=== PATIENT | male | born 1965 | race Caucasian/White ===

== ENCOUNTER → 2016-11-30 | Outpatient (CLI) | payer BC ==
--- NOTE | 2016-12-01 10:12 | XR ---
EXAMINATION TYPE: XR chest 2V DATE OF EXAM: 11/30/2016 4:29 PM COMPARISON: NONE TECHNIQUE: PA and lateral views submitted. HISTORY: Cough and congestion FINDINGS: The lungs are clear and there is no pneumothorax, pleural effusion, or focal pneumonia. IMPRESSION: 1. No acute process.
== END | disposition home or self-care (01) ==
LOC: RADXRYALE 16:15
PROVIDERS: ATTEND Family Medicine
DX: R05 Cough (principal)
CPT/HCPCS: 71020

== ENCOUNTER → 2018-02-11 | Day surgery (SDC) | payer BC ==
[2018-02-10 11:38] VITALS: BMI 35.9
[~2018-02-11] MED LIST: LACTATED RINGERS 1,000 ML IV SCH; LIDOCAINE 1% 20 ML VIAL (10MG/ML) FOR IV START INTRADERMA PRN; PROPOFOL 10 MG/ML 20 ML VIAL IV ONE
[2018-02-11 11:02] VITALS: TEMP 97
[2018-02-11 11:23] LABS: Basophils % (A) 1 %; Eosinophils # (A) 0.2 k/uL (0-0.7); Eosinophils % (A) 3 %; HCT 45.7 % (39.0-53.0); Lymphocytes % (A) 26 %; MCH 28.9 pg (25.0-35.0); MCHC 35.1 g/dL (31.0-37.0); MCV 82.5 fL (80.0-100.0); Mean Platelet Volume 7.7; Monocytes # (A) 0.5 k/uL (0-1.0); Monocytes % (A) 6 %; Neutrophils # (A) 5.2 k/uL (1.3-7.7); Neutrophils % (A) 64 %; Platelet Count 215 k/uL (150-450); RBC 5.53 m/uL (4.30-5.90); RDW 12.9 % (11.5-15.5)
[2018-02-11 11:38] LABS: ALT 44 U/L (21-72); AST 25 U/L (17-59); Albumin 4.1 g/dL (3.5-5.0); Alkaline Phosphatase 86 U/L (38-126); Anion Gap 12 mmol/L; Blood Urea Nitrogen 16 mg/dL (9-20); Calcium 9.3 mg/dL (8.4-10.2); Carbon Dioxide 24 mmol/L (22-30); Chloride 108 mmol/L (98-107); Glucose 104 mg/dL (74-99); Potassium 4.4 mmol/L (3.5-5.1); Sodium 144 mmol/L (137-145); Total Bilirubin 0.6 mg/dL (0.2-1.3)
--- NOTE | 2018-02-11 11:55 | P.PCN ---
Date of Procedure: 02/11/18 Procedure(s) Performed: BRIEF HISTORY: Patient is a 52-year-old, pleasant, white male, scheduled for an upper endoscopy as a part of evaluation of long-standing history of GERD of 20 years duration. He is been on Nexium 20 mg daily and lately has been having worsening heartburn and intermittent dysphagia to solids. PROCEDURE PERFORMED: Esophagogastroduodenoscopy with biopsy. PREOPERATIVE DIAGNOSIS: Long-standing history of GERD/intermittent dysphagia to solids. IV sedation per anesthesia. PROCEDURE: After informed consent was obtained, the patient was brought into the endoscopy unit. IV sedation was administered by Anesthesia under continuous monitoring. Initially the Olympus GIF-140 video endoscope was inserted into the mouth. Esophagus intubated without any difficulty. It was gradually advanced into the stomach and duodenum and carefully examined. The bulb and the second part of the duodenum appeared normal. The scope at this time was withdrawn to the stomach, adequately insufflated with air, and upon careful examination, mucosa of the antrum, had mild gastritis and biopsies were done from this area. body, cardia and the fundus appeared normal. The scope was then withdrawn into the esophagus. The GE junction was located at 39 cm from the incisors. There was a 5-6 mm polyp at the GE junction which was biopsied. Small hiatal hernia noted. The esophagus appeared normal. There were no erosions or ulcerations seen and the patient tolerated the procedure well. IMPRESSION: 1. mild antral gastritis. 2. Small hiatal hernia 3. 5-6 mm GE junction polyp status post biopsy. RECOMMENDATIONS: The findings of this examination were discussed with the patient as well as his family. He was advised to follow with the biopsy results. he was advised to continue with Nexium 40 mg daily and follow antireflux measures. He'll be seen in office in 6 weeks..
[2018-02-11 12:12] VITALS: BP 131/87; PULSE 61; RESP 16
[2018-02-11 12:13] LABS: C Reactive Protein <5.0 mg/L (<10.0)
[2018-02-11 19:25] LABS: Gliadin AB IgA, Unit 2.4 U/mL
== END | disposition home or self-care (01) ==
LOC: ORWHC2ENDO 10:34
PROVIDERS: ATTEND Internal Medicine Gastroenterology
DX: K29.50 Unspecified chronic gastritis without bleeding (principal); K21.9 Gastro-esophageal reflux disease without esophagitis; K44.9 Diaphragmatic hernia without obstruction or gangrene; K31.7 Polyp of stomach and duodenum; Z88.5 Allergy status to narcotic agent; Z79.899 Other long term (current) drug therapy; F17.210 Nicotine dependence, cigarettes, uncomplicated; I10 Essential (primary) hypertension; Z86.73 Personal history of transient ischemic attack (TIA), and cerebral infarction without residual deficits
CPT/HCPCS: 88305; 80053; 85025; 86140; 83516 ×4; 43239; J2704

== ENCOUNTER → 2018-11-10 | Outpatient (CLI) | payer BC ==
--- NOTE | 2018-11-11 10:13 | ECHOF ---
Referral Reason:I10 hypertension, R06.02 shortness of breath MEASUREMENTS -------- HEIGHT: 177.8 cm WEIGHT: 117.9 kg BP: 157/80 RVIDd: 3.3 cm (< 3.3) IVSd: 1.3 cm (0.6 - 1.1) LVIDd: 4.4 cm (3.9 - 5.3) LVPWd: 1.3 cm (0.6 - 1.1) IVSs: 1.6 cm LVIDs: 3.4 cm LVPWs: 1.7 cm LA Diam: 3.6 cm (2.7 - 3.8) LAESV Index (A-L): 25.45 ml/m Ao Diam: 3.4 cm (2.0 - 3.7) AV Cusp: 2.5 cm (1.5 - 2.6) MV EXCURSION: 17.007 mm (> 18.000) MV EF SLOPE: 85 mm/s (70 - 150) EPSS: 0.6 cm MV E Julito: 1.07 m/s MV DecT: 239 ms MV A Julito: 0.92 m/s MV E/A Ratio: 1.16 FINDINGS -------- Sinus rhythm. This was a technically adequate study. The left ventricular size is normal. There is mild concentric left ventricular hypertrophy. Overa ll left ventricular systolic function is normal with, an EF between 60 - 65 %. The right ventricle is mildly enlarged. Normal LA size by volume 22+/-6 ml/m2. The right atrium is normal in size. The aortic valve is trileaflet and appears structurally normal. The mitral valve is normal. The tricuspid valve appears structurally normal. Trace/mild (physiologic) pulmonic regurgitation. The aortic root size is normal. Normal inferior vena cava with normal inspiratory collapse consistent with estimated right atrial pre ssure of 5 mmHg. There is no pericardial effusion. CONCLUSIONS -------- 1. Sinus rhythm. 2. This was a technically adequate study. 3. The left ventricular size is normal. 4. There is mild concentric left ventricular hypertrophy. 5. Overall left ventricular systolic function is normal with, an EF between 60 - 65 %. 6. The right ventricle is mildly enlarged. 7. Normal LA size by volume 22+/-6 ml/m2. 8. The right atrium is normal in size. 9. The aortic valve is trileaflet and appears structurally normal. 10. The mitral valve is normal. 11. The tricuspid valve appears structurally normal. 12. Trace/mild (physiologic) pulmonic regurgitation. 13. The aortic root size is normal. 14. Normal inferior vena cava with normal inspiratory collapse consistent with estimated right atrial pressure of 5 mmHg. 15. There is no pericardial effusion. ARMATURE AND ROTOR WINDER: Janny Amanda RDCS
== END | disposition home or self-care (01) ==
LOC: RADECHMAIN 15:28
PROVIDERS: ATTEND Family Medicine
DX: I37.1 Nonrheumatic pulmonary valve insufficiency (principal); I11.9 Hypertensive heart disease without heart failure; R53.83 Other fatigue
CPT/HCPCS: 93306

== ENCOUNTER → 2018-12-15 | Outpatient (CLI) | payer BC ==
--- NOTE | 2018-12-15 16:34 | XR ---
EXAMINATION TYPE: XR chest 2V DATE OF EXAM: 12/15/2018 COMPARISON: Prior chest x-ray 11/30/2016 and 07/26/2017 HISTORY: COPD TECHNIQUE: Frontal and lateral views of the chest are obtained. FINDINGS: There is no focal air space opacity, pleural effusion, or pneumothorax seen. The cardiac silhouette size is within normal limits. The osseous structures are intact. IMPRESSION: No acute cardiopulmonary process.
== END ==
LOC: RADXRYALE 15:30
PROVIDERS: ATTEND Family Medicine
DX: J44.9 Chronic obstructive pulmonary disease, unspecified (principal)
CPT/HCPCS: 71046

== ENCOUNTER → 2019-10-11 | Outpatient (CLI) | payer BC ==
--- NOTE | 2019-10-11 11:27 | MM ---
Reason for exam: clinical finding. History: Patient history of other cancer. Family history of breast cancer in mother at age 61. Physical Findings: Nurse Summary: 1cm nodule in the left breast at 8 o'clock and 9 o'clock (nurse iron). [facility] Diagnostic Mammo w CAD RIOS Bilateral CC and MLO view(s) were taken. XCCL view(s) were taken of the left breast. The breast tissue is almost entirely fat. There is no discrete abnormality including area of concern marked by two BB's left breast. These results were verbally communicated with the patient and result sheet given to the patient on 10/11/19. ASSESSMENT: Negative, BI-RAD 1 RECOMMENDATION: Clinical management of both breasts. Manage patient on a clinical basis.
--- NOTE | 2019-10-11 11:28 | USB ---
Reason for exam: clinical finding. History: Patient history of other cancer. Family history of breast cancer in mother at age 61. US Breast Limited LT Left limited breast ultrasound including focal area of concern, retroareolar and axilla demonstrates a 1.9 x 1.1 x 0.6cm oval, hyperechoic lesion at 9 o'clock and a 1.4 x 1.3 x 0.6cm oval lesion at 8 o'clock. These results were verbally communicated with the patient and result sheet given to the patient on 10/11/19. ASSESSMENT: Benign, BI-RAD 2 RECOMMENDATION: Clinical correlation of the left breast. Manage on a clinical basis, if they change, reimage.
== END | disposition home or self-care (01) ==
LOC: RADMAMWWP 09:35
PROVIDERS: ATTEND Family Medicine
DX: N63.24 Unspecified lump in the left breast, lower inner quadrant (principal)
CPT/HCPCS: 77066

== ENCOUNTER → 2020-10-14 | Outpatient (CLI) | payer BC ==
[2020-10-14 16:35] LABS: Appearance,Urine Clear (Clear); Bilirubin,Urine Negative (Negative); Blood,Urine Negative (Negative); Color,Urine Colorless; Glucose,Urine (UA) Negative (Negative); Ketones,Urine Negative (Negative); Leukocyte Esterase,Urine Negative (Negative); Nitrite,Urine Negative (Negative); PH, Urine 5.5 (5.0-8.0); Protein,Urine Negative (Negative); Specific Gravity,Urine 1.004 (1.001-1.035); Urobilinogen,Urine <2.0 mg/dL (<2.0)
[2020-10-14 16:36] LABS: Basophils # (A) 0.1 k/uL (0-0.2); Basophils % (A) 1 %; Eosinophils # (A) 0.2 k/uL (0-0.7); Eosinophils % (A) 1 %; HCT 44.8 % (39.0-53.0); HGB 15.2 gm/dL (13.0-17.5); Lymphocytes # (A) 3.2 k/uL (1.0-4.8); Lymphocytes % (A) 25 %; MCH 29.5 pg (25.0-35.0); MCV 86.7 fL (80.0-100.0); Mean Platelet Volume 7.6; Monocytes # (A) 0.7 k/uL (0-1.0); Monocytes % (A) 6 %; Neutrophils # (A) 8.6 k/uL (1.3-7.7); Neutrophils % (A) 67 %; Platelet Count 218 k/uL (150-450); RBC 5.16 m/uL (4.30-5.90); RDW 12.8 % (11.5-15.5); WBC 12.9 k/uL (3.8-10.6)
[2020-10-14 16:47] LABS: African American GFR (CKD) >90 (>60 ml/min/1.73 sqM); Anion Gap 6 mmol/L; Blood Urea Nitrogen 17 mg/dL (9-20); Calcium 9.6 mg/dL (8.4-10.2); Carbon Dioxide 26 mmol/L (22-30); Chloride 103 mmol/L (98-107); Glucose 106 mg/dL (74-99); Non-African American GFR(CKD) 87 (>60 ml/min/1.73 sqM); Potassium 4.1 mmol/L (3.5-5.1); Sodium 135 mmol/L (137-145)
[2020-10-14 16:49] LABS: INR 0.9 (<1.2); Prothrombin Time 9.6 sec (9.0-12.0)
[2020-10-14 16:56] LABS: Partial Thromboplastin Time 21.5 sec (22.0-30.0)
--- NOTE | 2020-10-14 19:53 | XR ---
EXAMINATION TYPE: XR chest 2V DATE OF EXAM: 10/14/2020 COMPARISON: Chest x-ray 12/15/2018 HISTORY: Presurgical testing TECHNIQUE: Frontal and lateral views of the chest are obtained. FINDINGS: There is no focal air space opacity, pleural effusion, or pneumothorax seen. The cardiac silhouette size is within normal limits. The osseous structures are intact. IMPRESSION: No acute cardiopulmonary process.
== END | disposition home or self-care (01) ==
LOC: LABPAT 15:54
PROVIDERS: ATTEND Orthopaedic Surgery Orthopaedic Surgery of the Spine
DX: Z01.818 Encounter for other preprocedural examination (principal); G95.89 Other specified diseases of spinal cord
CPT/HCPCS: 36415; 71046; 80048; 81003; 85025; 85610; 85730; 86850; 86900; 86901

== ENCOUNTER 2020-10-21 06:20 | Day surgery (SDC) | payer BC ==
[2020-10-14 15:37] VITALS: BMI 35.9
[~2020-10-21 06:20] MED LIST changes: +LIDOCAINE 1% (10MG/ML) FOR IV START INTRADERMA PRN; -LIDOCAINE 1% 20 ML VIAL (10MG/ML) FOR IV START INTRADERMA PRN; +ONDANSETRON 4 MG/2 ML VIAL IVP ONE; -PROPOFOL 10 MG/ML 20 ML VIAL IV ONE; +ceFAZolin 1,000 MG in SODIUM CHLORIDE 0.9% IRRIGATIO 1,000 ML IRRIGATION PRN
[2020-10-21] MEDS ORDERED: fentaNYL (PF) 50 MCG/ML 2 ML AMP IV PRN (07:00)
[2020-10-21 07:20] LABS: Glucose,Whole Blood 123 mg/dL (75-99)
[2020-10-21] MEDS ORDERED: DEXAMETHASONE SOD PHOSPHATE 10 MG/ML 1 ML VIAL ONE (07:31)
[2020-10-21] MEDS ORDERED: HYDROmorphone (PF) 1 MG/ML ONE (07:31)
[2020-10-21] MEDS ORDERED: MIDAZOLAM 2 MG/2 ML VIAL ONE (07:31)
[2020-10-21] MEDS ORDERED: LIDOCAINE 1% INJ 10MG/ML (20 ML MDV) ONE (07:31)
[2020-10-21] MEDS ORDERED: GLYCOPYRROLATE 0.2 MG/ML 2 ML VIAL ONE (07:31)
[2020-10-21] MEDS ORDERED: SUCCINYLCHOLINE CHLORIDE 100 MG/5 ML SYR IV ONE (07:31)
[2020-10-21] MEDS ORDERED: PHENYLEPHRINE 10 MG/ML VIAL ONE (07:31)
[2020-10-21] MEDS ORDERED: fentaNYL (PF) 50 MCG/ML 2 ML AMP ONE (07:31)
[2020-10-21] MEDS ORDERED: ROCURONIUM 10 MG/ML (10 ML VIAL) IV ONE (07:31)
[2020-10-21] MEDS ORDERED: PROPOFOL 10 MG/ML 20 ML VIAL IV ONE (07:31)
[2020-10-21] MEDS ORDERED: NEOSTIGMINE 1 MG/ML 10 ML VIAL ONE (07:31)
[2020-10-21] MEDS ORDERED: LACTATED RINGERS 1,000 ML IV ONE ×2 (07:57→08:35)
[2020-10-21] MEDS ORDERED: LIDOCAINE 0.5%-EPI 1:200,000 50 ML VIAL SQ ONE ×2 (08:20)
--- NOTE | 2020-10-21 08:47 | XR ---
Cervical spine HISTORY: Needle placement Single lateral view of the cervical spine submitted. There is a needle present at C5-6 interspace. Endotracheal tube noted incidentally. Cervical spondylo sis present. IMPRESSION: Orthopedic localization
[2020-10-21] MEDS ORDERED: THROMBIN (BOVINE) 5,000 UNIT VIAL MISCELLANE ONE (09:43)
[2020-10-21] MEDS ORDERED: GELATIN SPONGE,ABSORB (LARGE) 1 EACH SPONGE TOPICAL ONE (09:43)
[2020-10-21] MEDS ORDERED: ONDANSETRON 4 MG/2 ML VIAL IVP PRN (10:18)
[2020-10-21] MEDS ORDERED: HYDROmorphone 1 MG/ML 1 ML SYRINGE IVP PRN (10:18)
[2020-10-21] MEDS ORDERED: BENZOCAINE/MENTHOL LOZENG 1 EACH LOZENGE MUCOUS MEM PRN (10:18)
[2020-10-21] MEDS ORDERED: HYDROcodone/APAP 5-325MG 1 EACH TAB PO PRN (10:18)
[2020-10-21] MEDS ORDERED: HYDROmorphone 0.5 MG/0.5 ML SYRINGE IVP PRN (10:18)
[2020-10-21] MEDS ORDERED: ACETAMINOPHEN TAB 325 MG TAB PO PRN (10:18)
--- NOTE | 2020-10-21 10:22 | XR ---
Limited cervical spine HISTORY: Status post anterior cervical discectomy and fusion Single lateral view of the cervical spine submitted. Patient is status post anterior cervical fusion and discectomy at C4-C7, lower levels are not well se en. There is anatomic alignment as visualized. Endotracheal tube is noted. IMPRESSION: Orthopedic follow-up.
--- NOTE | 2020-10-21 10:27 | P.OP ---
Date of Procedure: 10/21/20 Preoperative Diagnosis: Cervical myelopathy, cervical myelomalacia, severe cervical stenosis C4 5 C5 6 C6 7, herniated nucleus pulposis C4 5 C5 6 C6 7, upper extremity weakness, upper extremity radiculopathy, neck pain, degenerative disc disease Postoperative Diagnosis: Cervical myelopathy, cervical myelomalacia, severe cervical stenosis C4 5 C5 6 C6 7, herniated nucleus pulposis C4 5 C5 6 C6 7, upper extremity weakness, upper extremity radiculopathy, neck pain, degenerative disc disease Anesthesia: GETA Pathology: none sent Condition: stable Disposition: PACU Description of Procedure: BRIEF OPERATIVE NOTE Preoperative Diagnosis:Cervical myelopathy, cervical myelomalacia, severe cervical stenosis C4 5 C5 6 C6 7, herniated nucleus pulposis C4 5 C5 6 C6 7, upper extremity weakness, upper extremity radiculopathy, neck pain, degenerative disc disease Postoperative Diagnosis:Cervical myelopathy, cervical myelomalacia, severe cervical stenosis C4 5 C5 6 C6 7, herniated nucleus pulposis C4 5 C5 6 C6 7, upper extremity weakness, upper extremity radiculopathy, neck pain, degenerative disc disease Procedure: Anterior cervical decompression with discectomy and fusion C4 5 C5 6 C6 7 Placement of interbody graft C4 5 C5 6 C6 7 Application of anterior cervical plate C4 5 6 and 7 Removal of large anterior cervical osteophytes Surgeon: Dr. Dickerson Automatic Packer Operator: Antonio SCHMIDT who is present throughout the entire the case persistence during positioning, dissection, exposure, visualization, and all crucial elements of the case as well as closure. Anesthesia: General anesthesiaPer Dr. Ward Estimated blood loss:Approximately 75 mL Complications: None apparent Components implanted:K2M [place] anterior cervical plate system with screws and Vikos interbody allograft bone graft with 1 mL of DBX bone putty Disposition: To recovery room in good stable condition. OPERATIVE INDICATIONS The patient has had long-standing issues in their neck and upper extremities. he has been having worsening of his symptoms at his upper extremities and losing some of his strength and dexterity his hands and fingers. He is having pain at his upper extremities and was found have evidence of early myelopathy. He had further workup which showed cervical myelomalacia and cervical stenosis at C4 5 C5 6 C6 7 with disc herniation and changes within the spinal cord correlated well with his neck and upper extremity symptoms. The patient has been through conservative treatment. he continue to have worsening despite conservative treatment. We discussed various treatment options including surgery, and the patient wishes to proceed with surgery We discussed the risk, patient's alternatives and benefits of surgery including but not limited to, risk of bleeding risk of infection, risk of need for further surgery, risk of decreased, loss of motion, muscle function, malunion nonunion, hardware failure, nerve dam age, paralysis, heart attack, and . OPERATIVE SUMMARY After discussing all the risks, patient alternatives and benefits at length, the patient elected to proceed with surgical intervention, signed informed consent, and presented for their procedure. The patient was seen and examined in the preoperative holding area and the surgical site was marked. The patient was given antibiotics and brought to the operating room. The patient was positioned on the operating room table in a supine position being careful to pad any bony prominences and pressure points. The patient was sedated and intubated by anesthesia in standard fashion. Once the airway and C- spine were stabilized the patient's arms were padded and tucked at her side, with her shoulders gently taped. The head was placed in a donut pad with the neck in good neutral alignment and position. We were careful to maintain the patient's cervical spine and good neutral alignment and position throughout. The patient was prepped and draped in a normal standard fashion. An appropriate timeout and keystone protocol performed. We were able to proceed with the surgery. The local wound area was infiltrated with local anesthetic. An incision was made transversely approximately 2-1/2 cm over the appropriate levels At C6. Dissection was taken down subcutaneously to the level of the platysma which was split in line with its fibers. Dissection was taken with a carotid approach, with the trachea and esophagus medial and the carotid sheath laterally. We dissected down to the anterior surface of the vertebral bodies. Intraoperative x-ray was taken which showed a marker at the appropriate level Of C5 6. With the appropriate level positively confirmed, we were able to proceed with discectomy at the appropriate levels Starting at C4 5 than removing the C5 6 and then C6 7. All of the operative levels were exposed appropriately. he had very large anterior cervical osteophytes particularly at its 56 and C6 7 these had to be dissected out and removed as well. The patient had all their twitches back, and there was no evidence of recurrent laryngeal issue. The wound was copiously irrigated and suctioned dry as had been done periodically throughout the case. At the appropriate level/levels,starting at C4 5 than removing C5 6 and C6 7. I established an annulotomy with an 11 blade scalpel. A discectomy was performed with a combination of pituitary rongeurs, curettes, a high-speed bur, and Kerrison rongeurs. The posterior longitudinal ligament was taken down as were any posterior osteophytes. Note w as made of significant disc herniation particular at C4 5. There were large posterior osteophytes and thickening of the ligament was causing significant stenosis which was remedied with the decompression and discectomy and taking down posterior longitudinal ligament. This gave good central and bilateral foraminal decompression. There is no evidence of any dural tear or leak. The endplates were prepared with a high-speed bur. With the endplates in good parallel position, I was able to size for the appropriate size interbody graft. The wound was irrigated and suctioned dry the graft was prepared and malleted into position. It had good alignment and position with the anterior surface flush with the anterior surface of the vertebral bodies. This was done similarly the appropriate levels. With the grafts intact, I was able to measure and contour and appropriate sized plate. The plate was positioned at the midline over the appropriate levels From C4 to C7. Screw holes were established with a hand drill and drill guide. Screws were placed in good alignment and position with excellent bony purchase. They were seated under the locking device. The construct was checked and found to be stable. Intraoperative x-ray was taken which showed good alignment and position of the implants at the appropriate levels. There was no evidence of any dural tear or leak. Good hemostasis was maintained. The wound was copiously irrigated and suctioned dry as had been done periodically throughout the case. The platysma was closed with absorbable suture. The subcutaneous tissue was cl osed. The subcuticular tissue was closed with absorbable suture. The wound was cleaned and dried and dressed appropriately. A soft cervical collar was placed appropriately. The patient was woken up by anesthesia, extubated, transferred back gently to their hospital bed and brought to the recovery room in good stable condition. The patient will be admitted to the hospital for appropriate postoperative care, medical management and monitoring. We will continue to follow them closely about the postoperative course.
[2020-10-21] MEDS ORDERED: SODIUM CHLORIDE 0.9% 1,000 ML IV SCH (10:30)
[2020-10-21 10:46] VITALS: TEMP 97.4
[2020-10-21 10:51] VITALS: RESP 16
[2020-10-21 12:39] VITALS: BP 101/64; PULSE 68
[2020-10-21] MEDS ORDERED: PANTOPRAZOLE 40 MG TABLET PO SCH (17:30)
[2020-10-21] MEDS ORDERED: DICYCLOMINE 20 MG TAB PO SCH (21:00)
[2020-10-22] MEDS ORDERED: SYMBICORT 160-4.5 MCG INHALER INHALATION SCH (08:00)
[2020-10-22] MEDS ORDERED: MONTELUKAST 10 MG TAB PO SCH (09:00)
[2020-10-22] MEDS ORDERED: SENNOSIDES-DOCUSATE SODIUM 1 EACH TAB PO SCH ×2 (09:00)
[2020-10-22] MEDS ORDERED: CHOLECALCIFEROL 1,000 UNIT TAB PO SCH (09:00)
[2020-10-22] MEDS ORDERED: LORATADINE 10 MG TAB PO SCH (09:00)
[2020-10-22] MEDS ORDERED: LACTOBACILLUS ACIDOPH & BULGAR 1 EACH PACKET PO SCH (09:00)
[2020-10-22] MEDS ORDERED: LISINOPRIL-HCTZ 20-25 MG 1 EACH TAB PO SCH (09:00)
[2020-10-22] MEDS ORDERED: amLODIPine 10 MG TAB PO SCH (09:00)
== END 2020-10-21 13:20 | disposition home or self-care (01) ==
LOC: OR 06:20
PROVIDERS: ATTEND Orthopaedic Surgery Orthopaedic Surgery of the Spine
DX: M48.02 Spinal stenosis, cervical region (principal); G95.89 Other specified diseases of spinal cord; G95.9 Disease of spinal cord, unspecified; M50.10 Cervical disc disorder with radiculopathy, unspecified cervical region; M25.78 Osteophyte, vertebrae; I10 Essential (primary) hypertension; J44.9 Chronic obstructive pulmonary disease, unspecified; G47.33 Obstructive sleep apnea (adult) (pediatric); Z99.89 Dependence on other enabling machines and devices; F17.210 Nicotine dependence, cigarettes, uncomplicated; K21.9 Gastro-esophageal reflux disease without esophagitis; M79.642 Pain in left hand; M79.641 Pain in right hand; Z85.828 Personal history of other malignant neoplasm of skin; R05 Cough; Z97.3 Presence of spectacles and contact lenses; Z90.49 Acquired absence of other specified parts of digestive tract; Z98.890 Other specified postprocedural states; Z79.51 Long term (current) use of inhaled steroids; Z79.52 Long term (current) use of systemic steroids; Z79.899 Other long term (current) drug therapy; Z88.5 Allergy status to narcotic agent; Z88.8 Allergy status to other drugs, medicaments and biological substances
CPT/HCPCS: 72020; 22551; 22552 ×2; 22845; 20931; C1713 ×2; C1762 ×2; J2250; J1100; J2370; J2710; J0690 ×2; J2405; J2001; J3010; J1170; J0330; J2704; 86850; 86900; 86901

== ENCOUNTER → 2020-12-20 | Outpatient (CLI) | payer BC ==
--- NOTE | 2020-12-20 15:51 | XR ---
EXAMINATION TYPE: XR abdomen 2V DATE OF EXAM: 12/20/2020 COMPARISON: NONE HISTORY: Pain TECHNIQUE: One view abdominal series FINDINGS: The osseous structures are intact. The bowel gas pattern is nonspecific. Spina bifida occulta of the sacrum. Arthropathy of the hips correlate for femoral acetabular impingement. Mild hypertrophic mcgill ge of the spine. Occasional air-fluid level noted. IMPRESSION: 1. Nonspecific abdomen. Occasional air-fluid level in the right abdomen could been the basis of ileus or enteritis or transie nt. Correlate clinically.
== END ==
LOC: RADXRYALE 14:36
PROVIDERS: ATTEND Physician Assistant Medical
DX: R10.13 Epigastric pain (principal); K21.00 Gastro-esophageal reflux disease with esophagitis, without bleeding; R19.7 Diarrhea, unspecified
CPT/HCPCS: 74019

== ENCOUNTER → 2021-01-28 | Outpatient (CLI) | payer BC ==
--- NOTE | 2021-01-28 10:49 | CT ---
EXAMINATION TYPE: CT soft tissue neck w con DATE OF EXAM: 01/28/2021 COMPARISON: None HISTORY: Dyspagia, c-spne neck fusion 4-7 CT DLP: 766.0 mGycm CONTRAST: CT scan of the neck is performed with IV Contrast, patient injected with 100 mL of Isovue 300. Contrast enhanced CT of the neck was performed from the skull base through the lung apices. AIRWAY: The supraglottic, glottic, and subglottic portions of the airway appear patent and free of mass. SALIVARY GLANDS: The submandibular and parotid glands are free of mass or inflammatory process. THYROID GLAND: Small thyroid nodule measuring 6 mm right thyroid lobe. No additional thyroid nodules seen. LYMPH NODES: No adenopathy seen greater than 1cm. LUNG APICES: No nodule or mass is seen. OTHER: Vascular structures are patent. Cervical fusion changes C4-C7. No abscess seen. IMPRESSION: 1. Tiny thyroid nodule right thyroid lobe. 2. Cervical fusion changes as noted.
--- NOTE | 2021-01-28 11:17 | FL ---
Modified barium swallow. HISTORY: Dysphagia. Modified barium swallow was performed with the department of speech pathology. The patient was prese nted with various consistencies of barium. There is no evidence for aspiration or penetration. Full report is to follow from the department of speech pathology. Impression: Normal study.
== END | disposition home or self-care (01) ==
LOC: RADCTMAIN 10:08
PROVIDERS: ATTEND Otolaryngology
DX: R13.10 Dysphagia, unspecified (principal); E04.1 Nontoxic single thyroid nodule; Z98.1 Arthrodesis status
CPT/HCPCS: 92611; 74230; 70491; Q9967

== ENCOUNTER → 2021-01-31 | Outpatient (CLI) | payer BC ==
--- NOTE | 2021-01-31 11:44 | FL ---
ESOPHOGRAM. HISTORY: Dysphagia Esophagram was performed per the air contrast technique. The patient swallowed barium and effervesce nt crystals without difficulty or delay. Esophageal peristalsis and motility appear to be within normal limits. There is no evidence for filling defect, mass or diverticulum. No hiatal hernia seen. Subsequently single contrast cervical esophagram was performed which fails demonstrate evidence for a spiration penetration or mass. IMPRESSION: Unremarkable study.
== END | disposition home or self-care (01) ==
LOC: RADUSWWP 09:53
PROVIDERS: ATTEND Otolaryngology
DX: R13.10 Dysphagia, unspecified (principal)
CPT/HCPCS: 74220

== ENCOUNTER → 2024-06-01 | Outpatient (CLI) | payer BC ==
[2024-06-01 15:10] VITALS: BP 120/85; PULSE 86; RESP 16; TEMP 98.6
--- NOTE | 2024-06-01 15:55 | P.SLEEP ---
History of Present Illness DATE: 06/01/2024 CONSULTATION/NEW PATIENT EVALUATION HISTORY OF PRESENT ILLNESS/SLEEP-WAKE EVALUATION: 59-year-old gentleman had b een evaluated in the sleep center for possible obstructive sleep apnea hypopnea syndrome. Patient has history of obstructive sleep apnea for about 8 years, he stopped using CPAP equipment 1-1/2-year ago. SLEEP SCHEDULE: Usually sleep schedule from 10 PM to 5:15 AM on weekdays and until 6 AM on weekend. FALLING ASLEEP: Sometimes patient has difficulties to initiate sleep, has TV set in bedroom. DURING SLEEP: Patient usually sleeps on the side position with loud snoring and episodes of stop breathing during the sleep. Positive history of grinding teeth, heartburn, gasping for air. Patient wakes up from sleep multiple times with up to 2 episodes of nocturia. No history of hypnogogical hallucinations, sleep paralysis, or cataplexy. DURING THE DAY/WAKE STATE: In the morning patient wake up tired, has episodes of irritability. [place] sleepiness scale is 6. Patient may take up to 2 rest. During the day during the day. PAST MEDICAL HISTORY: Hypertension, acid reflux, asthma, allergy, COVID-19. PAST SURGICAL HISTORY: Appendectomy right shoulder surgery, cervical fusion. MEDICATIONS: Please see below. SOCIAL HISTORY: Please see below. FAMILY HISTORY: Hypertension, cancer. REVIEW OF SYSTEMS: Loud snoring, multiple awakenings from sleep, sleepiness during the day. No fevers. No double vision. No recent chest pain. No shortness of breath. No abdominal pain. No bleeding episodes. No blood in urine. No seizure episodes. PHYSICAL EXAMINATION: GENERAL: A pleasant patient without any distress. VITAL SIGNS: Please see below, weight 256.2 pounds, BMI 36.7. HEENT: PERRLA, EOMI. Evaluation of oropharynx showed tongue protrudes midline, low position of soft palate Mallampati 4. NECK: Supple. No JVD. Thyroid is not palpable. 19-1/4 inches in circumference. LUNGS: Clear to percussion and to auscultation. Good air exchange. No wheezing or rhonchi. HEART: S1, S2 regular. No murmurs, gallops or rubs. ABDOMEN: Soft and nontender. Bowel sounds are present. No organomegaly appreciated. EXTREMITIES: No clubbing or cyanosis. IC DESIGNER STANDARD CELLS: Awake, alert, and oriented x3. Cranial nerves 2 to 7 intact. There is no fasciculation or atrophy noted. No focal deficits observed. ASSESSMENT: 1. Loud snoring, multiple awakenings from sleep, extremely low position of soft palate Mallampati 4, extremely wide neck 19-1/4 inches in circumference. History of obstructive sleep apnea hypopnea syndrome. Obstructive sleep apnea hypopnea syndrome. 2. Asthma. 3. Acid reflux. 4. Hypertension. 5 allergy. 6 . Obesity, BMI 36.7. 7. Status post COVID-19. 8. Status post appendectomy. 9 . Status post right shoulder surgery. 10. Status post cervical fusion. PLAN: 1. Home sleep apnea test for evaluation of patient's breathing during sleep at the present time. 2. Patient will start to use CPAP therapy after home sleep apnea test. 3. Preferable position during sleep on the side. 4. No driving if patient feels any sleepiness. Patient is aware of civil and criminal liability for unsafe driving. 5. Sleep hygiene with regular sleep time for at least 7.5-8 hours. 6. Watching and losing weight. 7. Follow-up visit in 3 months. Thank you very much for referring this patient for consultation. Sincerely, Delbert Ponce MD, PhD, FAASM. Diplomat of [place] [employer], Sleep Medicine Board by [place] [employer] [place] [employer] Bulk Delivery Driver of [facility] [place] Past Medical History Past Medical History: Asthma, GERD/Reflux, Hypertension, Sleep Apnea/CPAP/BIPAP Additional Past Medical History / Comment(s): DIVERTICULITIS. USES C-PAP MACHINE History of Any Multi-Drug Resistant Organisms: None Reported Past Surgical History: Adenoidectomy, Appendectomy, Bowel Resection, Orthopedic Surgery Additional Past Surgical History / Comment(s): RIGHT SHOULDER X2 , COLONOSCOPY, cervical fusion Past Anesthesia/Blood Transfusion Reactions: No Reported Reaction Past Psychological History: No Psychological Hx Reported Smoking Status: Current every day smoker Past Alcohol Use History: Rare Additional Past Alcohol Use History / Comment(s): STARTED SMOKING AT AGE 17 SMOKES 3/4 PPD-TRYING TO QUIT Past Drug Use History: None Reported - Past Family History Father Family Medical History: Cancer Additional Family Medical History / Comment(s): LUNG CANCER Medications and Allergies Home Medications Medication Instructions Recorded Confirmed Type Dicyclomine [Bentyl] 20 mg PO BID 02/10/18 06/01/24 History Esomeprazole Magnesium [NexIUM] 40 mg PO BID 02/10/18 06/01/24 History Montelukast [Singulair] 10 mg PO DAILY 02/10/18 06/01/24 History Cetirizine HCl 10 mg PO 06/01/24 History Losartan/Hydrochlorothiazide 1 tab PO 06/01/24 History [Losartan-Hctz 100-25 mg Tab] Allergies Allergy/AdvReac Type Severity Reaction Status Date / Time morphine Allergy Nausea & Verified 10/21/20 07:11 Vomiting Physical Exam Vitals: Vital Signs Temp Pulse Resp BP Pulse Ox 06/01/24 15:07 98.6 F 86 16 120/85 97 Intake and Output 06/01/24 06/01/24 06/01/24 06:59 14:59 22:59 Other: Weight 116.12 kg Sleep Note - Sleep Data ESS Total: 6 - Sleep Note Sleep Note: Temperature: 98.6 F Pulse Rate: 86 Respiratory Rate: 16 Blood Pressure: 120/85 SpO2: 97 Height: 5 ft 10 in Weight: 116.12 kg BMI: Neck Circumference: 19.2
== END ==
LOC: 3 N SLEEP 14:31
PROVIDERS: ATTEND Internal Medicine
CPT/HCPCS: 99211

== ENCOUNTER → 2024-06-08 | Outpatient (CLI) | payer BC ==
--- NOTE | 2024-06-14 12:30 | P.PCN ---
Description of Procedure: CLINICAL: A home sleep apnea test has been done for confirmation of possible obstructive sleep apnea-hypopnea syndrome. DESCRIPTION OF PROCEDURE: RESULTS: Recording time was 7 hours 15 minutes. Evaluation time was 6 hours 59 minutes. Evaluation time is sufficient for making conclusion about results of the test. Raw data of sleep recording has been reviewed and is adequate. Respiratory channel showed 117 apneas and 310 hypopneas. Apnea-hypopnea index was 61.1 per hour. Pulse rate in the range between minimum 46, maximum 100, average 67 by computer calculation. Lowest desaturation was 73%. 1569 snoring events were documented. IMPRESSION: 1. Extremely severe Obstructive Sleep Apnea Hypopnea Syndrome with severe oxygen desaturation. Please see other impressions from consultation. PLAN: 1. The patient should have PAP titration for correction of respiratory abnormallities during sleep. 2. Sleep hygiene with regular time in bed for at least 8 hours. 3. Watching weight. 4. No driving if feeling any sleepiness. Thank you very much for allowing me to participate in the management of your patient. Sincerely, Delbert Ponce MD, PhD, FAASM Diplomat of [employer] Sleep Medicine Board of [place] [employer] Systems Design Engineer of [facility] [place] cc: Juan F Solis DO
== END ==
LOC: 3 N SLEEP 16:37
PROVIDERS: ATTEND Internal Medicine

== ENCOUNTER 2024-11-23 19:45 | Outpatient (CLI) | payer BC ==
--- NOTE | 2024-11-29 18:49 | P.PCN ---
Description of Procedure: CLINICAL: Titration with positive air pressure has been done for correction of respiratory abnormalities during sleep. DESCRIPTION OF PROCEDURE: The standard montage for clinical polysomnography included the electroencephalogram, the electrocardiogram, the mentalis surface electromyography and Lead II cardiography. The respiratory battery consisted of measurements of nasal /buccal air flow, pressure transducer measurements from the nose, thoracic and /or abdominal effort and intercostal surface electromyography. Video monitoring has been done to check for any parasomnia events. Nocturnal oxyhemoglobin saturations were obtained by finger oximetry. Step-jenkins titration with positive airway pressure was utilized to control respiratory events. Raw data of sleep recording has been reviewed and is adequate. RESULTS: Sleep efficiency was decreased to 80.2%. Latency to sleep onset was in normal range 22.5 minutes.]. Sleep architecture showed stage N1 was extremely high 32.5%, Delta sleep was absent 0%, REM sleep was significantly increased to 38.6%. Heart rate was minimum 57 BPM, maximum 64 BPM, average 60 BPM. EMG showed 69.4 periodic limb movements per hour with 0.2 micriarousals per hour. PAP titration have been done with CPAP up to the pressure 13 cm H2O. The best results were at the pressure 8 cm H2O. Apnea hypopnea index reduced to 1.9. IMPRESSION: 1. Obstructive sleep apnea hypopnea syndrome mostly on controle with PAP treatment. 2. Severe periodic limb movements have been documented. Please see other impressions from consultation. PLAN: 1. The patient will have treatment with positive air pressure equipment with the level of pressure AutoPAP 5-14 cm H2O and should use it every night for the whole night. 2. Watching and losing weight. 3. Sleep hygiene with regular time in bed for at least 8 hours. 4. No driving if feeling any sleepiness. 5. I will see the patient for follow up visit to explain the results of the test, recommendations, check compliance with treatment and make any necessary adjustment related to mask fitting, pressure and humidification. 6. Please check iron profile including ferritin level. Low level of iron may increase risk for periodic limb movements Thank you very much for allowing me to participate in the management of your patient. Sincerely, Delbert oPnce MD, PhD, FAASM Diplomat of [employer] Sleep Medicine Board of [employer] Career Development Counselor of [facility] [place] cc: Juan F Solis DO
== END 2024-11-24 07:00 | disposition home or self-care (01) ==
LOC: 3 N SLEEP 19:45
PROVIDERS: ATTEND Internal Medicine
DX: G47.33 Obstructive sleep apnea (adult) (pediatric) (principal); G47.61 Periodic limb movement disorder; Z99.89 Dependence on other enabling machines and devices; F17.210 Nicotine dependence, cigarettes, uncomplicated; Z88.5 Allergy status to narcotic agent
CPT/HCPCS: 95811

== ENCOUNTER → 2025-02-08 | Outpatient (CLI) | payer BC ==
[2025-02-08 10:49] VITALS: BP 136/87; PULSE 68; RESP 16; TEMP 98
--- NOTE | 2025-02-08 11:17 | P.PROGSL ---
Subjective DATE: [] FOLLOW UP VISIT. Patient with obstructive sleep apnea hypopnea syndrome return to sleep center for follow-up visit. Recently patient had sleep studies and explained results of sleep studies to the patient in details. Testing showed extremely severe sleep apnea with apnea hypopnea index of 61.1 with oxygen distribution to 73%. Patient was started on treatment with CPAP and today is his first visit after treatment was initiated. Patient is using PAP equipment every night for the whole night, getting PAP supplies in time. Patient feels mild discomfort in the chest in the morning after using CPAP, he thinks that the humidity is too much, no dryness. Cantil sleepiness scale is 4. I checked information from PAP unit. PAP unit pressure 5-14, average 11.7 cm H2O. Usage is 93% for more then 4 hours, average 7.25 hours per night. Leak is 7.7 l/m, which is in acceptable range. Apnea Hypopnea Index is 2.5, which is normal. MEDICATIONS have been reviewed, please see below. During physical exam: GENERAL: A pleasant patient without any distress. VITAL SIGNS: Please see below, weight is 253 lbs. HEENT: PERRLA, EOMI.low position of soft palate, Mallapati 4 . NECK: Supple. No JVD. LUNGS: Clear to percussion and to auscultation. Good air exchange. No wheezing or rhonchi. HEART: S1, S2 regular. ABDOMEN: Soft and nontender. Slightly obese EXTREMITIES: No clubbing or cyanosis. STUDENT SERVICES COUNSELOR: Awake, alert, and oriented x3. No focal deficit. Impressions: 1. Obstructive sleep apnea-hypopnea syndrome. Patient demonstrated great compliance with treatment, benefiting from treatment. Sometimes patient feels some discomfort in the chest after using CPAP. 2. Hypertension. 3. Obesity. 4. Asthma. 5. Acid reflux. 6. Allergy. 7. Status post COVID-19. 8. Periodic limb movements have been documented sleep study. 9. Status post appendectomy. 10. Status post cervical fusion. 11. Status post right shoulder surgery. I changed range of the pressure CPAP unit down to 5-12 cm of water. Plan: 1. Continue using PAP equipment every night for the whole night. 2. Sleep hygiene with regular time in bed for at least 7.5-8 hours 3. PAP unit should stay lower then position of the head. 4. Advised patient to remove all remaining water from humidifier canister daily and make it dry after each usage. Refill canister with fresh distilled water before each usage. 5. Watching weight. 6. Precautions related to driving. No driving if feel any sleepiness. 7. I will maintain prescription for PAP supplies including mask, tube, filters. 8. Follow up visit in 2 months or earlier if patient has any problems. 9. Patient will start Mirapex at the lowest dose 0.125 mg 1 to 2 tablets at bedtime to prevent leg movements. Thank you very much for allowing me to participate in the management of your patient. Delbert Ponce MD, PhD, FAASM. Diplomat of [employer], Sleep Medicine Board by [employer] Accounting Auditor of [facility] [place] cc: Juan F Solis DO Objective - Vital Signs Vital Signs: Vital Signs Temp 98 F 02/08/25 10:41 Pulse 68 02/08/25 10:41 Resp 16 02/08/25 10:41 BP 136/87 02/08/25 10:41 Pulse Ox 98 02/08/25 10:41 FiO2 Intake & Output 02/07/25 02/08/25 02/08/25 18:59 06:59 18:59 Weight 114.759 kg Home Medications: Home Medications Medication Instructions Recorded Confirmed Type Dicyclomine [Bentyl] 20 mg PO BID 02/10/18 06/01/24 History Esomeprazole Magnesium [NexIUM] 40 mg PO BID 02/10/18 06/01/24 History Montelukast [Singulair] 10 mg PO DAILY 02/10/18 06/01/24 History Cetirizine HCl 10 mg PO 06/01/24 History Losartan/Hydrochlorothiazide 1 tab PO 06/01/24 History [Losartan-Hctz 100-25 mg Tab]
== END ==
LOC: 3 N SLEEP 10:32
PROVIDERS: ATTEND Internal Medicine
DX: G47.33 Obstructive sleep apnea (adult) (pediatric) (principal); I10 Essential (primary) hypertension; E66.9 Obesity, unspecified; J45.909 Unspecified asthma, uncomplicated; K21.9 Gastro-esophageal reflux disease without esophagitis; F17.200 Nicotine dependence, unspecified, uncomplicated; Z88.9 Allergy status to unspecified drugs, medicaments and biological substances; Z86.16 Personal history of COVID-19; Z98.890 Other specified postprocedural states; Z96.611 Presence of right artificial shoulder joint; Z88.5 Allergy status to narcotic agent
CPT/HCPCS: 99212

== ENCOUNTER → 2025-04-11 | Outpatient (CLI) | payer BC ==
--- NOTE | 2025-04-11 17:13 | P.PROGSL ---
Subjective DATE: 04/11/2025 FOLLOW UP VISIT. Patient with obstructive sleep apnea hypopnea syndrome return to sleep center for follow-up visit. Information from previous visit have been reviewed. Patient is using PAP equipment every night for the whole night, getting PAP supplies in time. The patient does not have significant problems with the mask, PAP unit and humidification. Beatty sleepiness scale is 3. I checked information from PAP unit. PAP unit pressure 5-12, average 11.4 cm H2O. Usage is 100% for more then 4 hours, average 7 hours per night. Leak is 32 l/m, which is in acceptable range. Apnea Hypopnea Index is 2.8, which is normal. MEDICATIONS have been reviewed, please see below. During physical exam: GENERAL: A pleasant patient without any distress. VITAL SIGNS: Please see below, weight is 250 lbs. HEENT: PERRLA, EOMI.low position of soft palate, Mallapati 4 . NECK: Supple. No JVD. LUNGS: Clear to percussion and to auscultation. Good air exchange. No wheezing or rhonchi. HEART: S1, S2 regular. ABDOMEN: Soft and nontender. Slightly obese EXTREMITIES: No clubbing or cyanosis. MAINTENANCE CONTROLLER: Awake, alert, and oriented x3. No focal deficit. Impressions: 1. Obstructive sleep apnea-hypopnea syndrome. Patient demonstrated great compliance with treatment, benefiting from treatment. 2. Obesity, BMI 36.9, patient lost 3 pounds comparing with previous visit. 3. Hypertension. 4. Asthma. 5. Acid reflux. 6. Allergy. 7. History of periodic limb movements, presently no clinical problems. 8. Status post cervical fusion. 9. Status post right shoulder surgery. 10. Status post appendectomy. Plan: 1. Continue using PAP equipment every night for the whole night. 2. Sleep hygiene with regular time in bed for at least 7.5-8 hours 3. PAP unit should stay lower then position of the head. 4. Advised patient to remove all remaining water from humidifier canister daily and make it dry after each usage. Refill canister with fresh distilled water before each usage. 5. Watching and losing weight. 6. Precautions related to driving. No driving if feel any sleepiness. 7. I will maintain prescription for PAP supplies including mask, tube, filters. 8. Follow up visit in 8 months or earlier if patient has any problems. Thank you very much for allowing me to participate in the management of your patient. Delbert Ponce MD, PhD, FAASM. Diplomat of [place] [employer], Sleep Medicine Board by [place] [employer] Mining Teacher of [facility] [place] Objective Home Medications: Home Medications Medication Instructions Recorded Confirmed Type Dicyclomine [Bentyl] 20 mg PO BID 02/10/18 06/01/24 History Esomeprazole Magnesium [NexIUM] 40 mg PO BID 02/10/18 06/01/24 History Montelukast [Singulair] 10 mg PO DAILY 02/10/18 06/01/24 History Cetirizine HCl 10 mg PO 06/01/24 History Losartan/Hydrochlorothiazide 1 tab PO 06/01/24 History [Losartan-Hctz 100-25 mg Tab]
== END ==
LOC: 3 N SLEEP 16:49
PROVIDERS: ATTEND Internal Medicine
DX: G47.33 Obstructive sleep apnea (adult) (pediatric) (principal); E66.9 Obesity, unspecified; I10 Essential (primary) hypertension; J45.909 Unspecified asthma, uncomplicated; K21.9 Gastro-esophageal reflux disease without esophagitis; T78.40XA Allergy, unspecified, initial encounter; F17.200 Nicotine dependence, unspecified, uncomplicated; Z68.36 Body mass index [BMI] 36.0-36.9, adult; Z90.49 Acquired absence of other specified parts of digestive tract; Z96.611 Presence of right artificial shoulder joint; Z96.1 Presence of intraocular lens; Z86.69 Personal history of other diseases of the nervous system and sense organs; Z88.5 Allergy status to narcotic agent
CPT/HCPCS: 99212